=== PATIENT | male | born 1970 | race Caucasian/White ===

== ENCOUNTER → 2025-02-13 08:53 | Outpatient (CLI) | payer OTHER, SELFPAY ==
[2025-02-13 10:07] LABS: Add Manual Diff / Slide Review NO; Basophils Absolute Auto 0 /uL (0-100); Basophils Percent Auto 0.6 % (0-2); Eosinophils Absolute Auto 100 /uL (0-450); Eosinophils Percent Auto 2.9 % (2-4); Hematocrit 40.7 % (41-53); Hemoglobin 13.9 g/dL (13.5-17.5); Lymphocytes Absolute Auto 1700 /uL (1100-4500); Lymphocytes Percent Auto 35.5 % (25-40); Mean Corpuscular HGB Conc 34.2 % (30-36); Mean Corpuscular Hemoglobin 30.7 PG (26-34); Mean Corpuscular Volume 89.9 fL (80-100); Monocytes Absolute Auto 500 /uL (0-900); Monocytes Percent Auto 9.6 % (3-14); Neutrophils Absolute Auto 2400 /uL (1500-7000); Neutrophils Percent Auto 51.4 % (50-75); Platelet Count 204 X10^3/uL (150-400); Red Blood Cell Count 4.53 X10^6/uL (4.5-5.9); Red Cell Distribution Width 13.2 % (11.6-14.8); White Blood Cell Count 4.8 X10^3/uL (4.5-11.0)
[2025-02-13 10:18] LABS: Hemoglobin A1C% w Est Avg Glu 5.2 % (4.0-6.0)
[2025-02-13 10:33] LABS: HEMOLYSIS < 15 (0-50); Iron 73 ug/dL (49-181)
[2025-02-13 10:35] LABS: Alanine Aminotransferase 43 IU/L (<50); Albumin 4.2 g/dL (3.5-5.0); Albumin Globulin Ratio 1.9 (1.0-2.8); Alkaline Phosphatase 74 U/L (38-126); Aspartate Aminotransferase 38 IU/L (17-59); BUN Creatinine Ratio 16.7 (6-22); Bilirubin Total 0.8 mg/dL (0.2-1.3); Blood Urea Nitrogen 13 mg/dL (9-20); Calcium 9.2 mg/dL (8.4-10.2); Carbon Dioxide 25 mmol/L (22-32); Chloride 102 mmol/L (98-107); Cholesterol 211 mg/dL (140-199); Estimated Glomerular Filt Rate > 60 mL/min (>60); Globulin 2.2 g/dL (1.7-4.1); Glucose 109 mg/dL (70-99); HDL Cholesterol 46 mg/dL (40-60); HEMOLYSIS < 15 (0-50); LDL Cholesterol Calculated 137 mg/dL (<100); Potassium 4.4 mmol/L (3.4-5.1); Sodium 136 mmol/L (137-145); Total Protein 6.4 g/dL (6.3-8.2); Triglycerides 140 mg/dL (35-150)
[2025-02-13 10:47] LABS: Percent Iron Saturation 26 % (20-50); Total Iron Binding Capacity 282 ug/dL (261-462); Transferrin 236 mg/dL (206-381)
[2025-02-13 10:51] LABS: Free T3, Triiodothyronine Free 3.72 pg/mL (2.77-5.27); T4 Total Thyroxine 5.31 ug/dL (5.5-11.0)
[2025-02-13 11:07] LABS: Cortisol AM (Before 10AM) 10.1 ug/dL (4.46-22.7); Prostate Specific Antigen 0.281 ng/mL (0.10-4.00)
[2025-02-13 11:10] LABS: Estradiol, Total 26.7 pg/mL; Ferritin 47 ng/mL (18-464)
[2025-02-13 12:32] LABS: T7 (Free Thyroxine Index) 1.67 (1.65-3.89); Triiodothryronine T3 Uptake 31.4 % (23.5-40.5)
[2025-02-13 12:46] LABS: Thyroid Stimulating Hormone 0.918 uIU/mL (0.47-4.68)
[2025-02-13 23:10] LABS: Sex Hormone Binding Globulin 39.5 nmol/L (19.3-76.4)
[2025-02-14 06:37] LABS: Thyroid Peroxidase Antibodies <9 IU/mL (0-34)
[2025-02-15 14:12] LABS: IGF-1 153 ng/mL (68-247)
[2025-02-17 11:41] LABS: Triiodothyronine T3 Reverse 7.3 ng/dL (.)
[2025-02-17 12:11] LABS: Dihydrotestosterone 35 ng/dL (.)
[2025-02-20 12:10] LABS: Thyroglobulin Level 2.1 ng/mL (.)
== END ==
LOC: LAB 08:59
PROVIDERS: PCP Family Medicine
DX: Z13.29 Encounter for screening for other suspected endocrine disorder (principal); Z13.1 Encounter for screening for diabetes mellitus; E07.89 Other specified disorders of thyroid; E29.1 Testicular hypofunction; R94.7 Abnormal results of other endocrine function studies; D51.0 Vitamin B12 deficiency anemia due to intrinsic factor deficiency; E29.8 Other testicular dysfunction; E61.1 Iron deficiency; E06.3 Autoimmune thyroiditis; R89.1 Abnormal level of hormones in specimens from other organs, systems and tissues; E23.6 Other disorders of pituitary gland; E88.810 Metabolic syndrome
CPT/HCPCS: 36415; 80053; 80061; 82533; 82642; 82670; 82728; 83036; 83525; 83540; 83550; 84153; 84270; 84305; 84402; 84403; 84432; 84436; 84443; 84479; 84481; 84482; 85025; 86376

== ENCOUNTER → 2025-03-27 09:03 | Outpatient (CLI) | payer OTHER, SELFPAY | LOC: LAB 09:06 | PROVIDERS: PCP Family Medicine; Referring Provider Physician Assistant Surgical; Visit Provider Physician Assistant Surgical | DX: E29.1 Testicular hypofunction (principal) | CPT/HCPCS: 84402; 84403 ==